=== PATIENT | female | born 1965 | race Hispanic/Latino ===

== ENCOUNTER 2023-04-08 15:06 | Outpatient (RCR) | payer OTHER, BC, SELFPAY | END 2023-04-08 23:59 | disposition home or self-care (01) | LOC: RPT 15:06 | PROVIDERS: ATTENDING PHYSICIAN Physician Assistant Medical | DX: M54.2 Cervicalgia (principal); M54.9 Dorsalgia, unspecified; R07.9 Chest pain, unspecified; V89.2XXD Person injured in unspecified motor-vehicle accident, traffic, subsequent encounter | CPT/HCPCS: 97010; 97110; 97112; 97162 ==

== ENCOUNTER 2023-04-25 14:26 | Outpatient (RCR) | payer OTHER, BC, SELFPAY | END 2023-04-25 23:59 | disposition home or self-care (01) | LOC: RPT 14:26 | PROVIDERS: ATTENDING PHYSICIAN Physician Assistant Medical | DX: M54.2 Cervicalgia (principal); M54.9 Dorsalgia, unspecified; R07.9 Chest pain, unspecified; Z73.6 Limitation of activities due to disability; V89.2XXD Person injured in unspecified motor-vehicle accident, traffic, subsequent encounter | CPT/HCPCS: 97110 ==

== ENCOUNTER → 2023-05-17 06:22 | Outpatient (REF) | payer OTHER, BC, SELFPAY | LOC: MRI 06:22 | PROVIDERS: ATTENDING PHYSICIAN Physician Assistant Medical | DX: M54.2 Cervicalgia (principal); V89.2XXD Person injured in unspecified motor-vehicle accident, traffic, subsequent encounter | CPT/HCPCS: 72141 ==

== ENCOUNTER → 2023-06-04 14:39 | Outpatient (REF) | payer BC, SELFPAY | LOC: WDC 14:39 | PROVIDERS: ATTENDING PHYSICIAN Physician Assistant Medical | DX: Z12.31 Encounter for screening mammogram for malignant neoplasm of breast (principal) | CPT/HCPCS: 77063; 77067 ==

== ENCOUNTER → 2023-12-01 15:15 | Outpatient (REF) | payer BC, SELFPAY ==
[2023-12-01 16:02] LABS: % Basophils 0.8 % (0-2); % Eosinophils 2.1 % (0-6); % Immature Granulocytes 0.3 % (0-0.5); % Lymphocytes 27.5 % (20.5-51.1); % Monocytes 8.1 % (1.7-9.3); % Neutrophils 61.2 % (42.2-75.2); Absolute Basophils 0.1 10^3/uL (0-0.2); Absolute Eosinophils 0.2 10^3/uL (0-0.7); Absolute Lymphocytes 2.1 10^3/uL (1.2-3.4); Absolute Monocytes 0.6 10^3/uL (0.1-0.6); Absolute Neutrophils 4.6 10^3/uL (1.4-6.5); Hemoglobin 12.2 g/dL (12.0-16.0); Mean Corp Hgb Conc. 33.9 g/dL (33.0-37.0); Mean Corpuscular Hgb 30.2 pg (27.0-31.0); Mean Corpuscular Volume 89.1 fL (81.0-99.0); Mean Platelet Volume 9.1 fL (7.4-10.4); Nucleated Red Blood Cells % 0 %; Platelet Count 324 10^3/uL (130-400); Red Blood Cell Count 4.04 10^6/uL (4.20-5.40); Red Cell Dist. Width 13.6 % (11.5-14.5); White Blood Cell Count 7.6 10^3/uL (4.8-10.8)
[2023-12-01 16:15] LABS: ALT (SGPT) 22 U/L (0-35); AST (SGOT) 30 U/L (14-36); Albumin 4.7 g/dl (3.5-5.0); Alkaline Phosphatase 88 U/L (38-126); Blood Urea Nitrogen 17 mg/dl (7-17); Calcium 9.6 mg/dl (8.4-10.2); Carbon Dioxide 28 mmol/L (22-30); Chloride 102 mmol/L (98-107); Glucose 85 mg/dl (70-99); HDL Cholesterol 100 mg/dl; LDL Cholesterol, Calculated 132 mg/dl; Potassium 4.5 mmol/L (3.5-5.1); Sodium 142 mmol/L (135-145); Total Bilirubin 0.5 mg/dl (0.2-1.3); Total Cholesterol 243 mg/dl (50-199); Total Protein 7.5 g/dl (6.3-8.2); Triglyceride 56 mg/dl (10-149); Very Low Density Lipoprotein 11 mg/dl (0-30); eGFR > 60.00
[2023-12-01 16:17] LABS: Erythrocyte Sed Rate 18 mm/hour (0-20)
[2023-12-01 16:19] LABS: C-Reactive Protein < 5.00 mg/L (0.0-10.00)
[2023-12-02 10:09] LABS: Glycohemoglobin (HgbA1c) 5.4 % (4.0-5.6)
== END ==
LOC: REG 15:15
PROVIDERS: ATTENDING PHYSICIAN Internal Medicine Rheumatology; FAMILY PHYSICIAN Student in an Organized Health Care Education/Training Program
DX: Z00.00 Encounter for general adult medical examination without abnormal findings (principal); M25.50 Pain in unspecified joint
CPT/HCPCS: 36415; 80053; 80061; 83036; 84443; 85025; 85652; 86140

== ENCOUNTER 2023-12-05 15:03 | Outpatient (RCR) | payer OTHER, BC, SELFPAY | END 2023-12-05 23:59 | disposition home or self-care (01) | LOC: RPT 15:03 | PROVIDERS: ATTENDING PHYSICIAN Physician Assistant Medical | DX: M54.12 Radiculopathy, cervical region (principal); Z73.6 Limitation of activities due to disability | CPT/HCPCS: 97010; 97110; 97112; 97140; 97162; 97530 ==

== ENCOUNTER 2023-12-24 15:01 | Outpatient (RCR) | payer OTHER, BC, SELFPAY | END 2023-12-24 23:59 | disposition home or self-care (01) | LOC: RPT 15:01 | PROVIDERS: ATTENDING PHYSICIAN Physician Assistant Medical | DX: M54.12 Radiculopathy, cervical region (principal); Z73.6 Limitation of activities due to disability | CPT/HCPCS: 97010; 97110; 97112; 97140 ==

== ENCOUNTER → 2024-06-04 16:15 | Outpatient (REF) | payer BC, SELFPAY | LOC: WDC 16:15 | PROVIDERS: ATTENDING PHYSICIAN Physician Assistant Medical | DX: Z12.31 Encounter for screening mammogram for malignant neoplasm of breast (principal) | CPT/HCPCS: 77063; 77067 ==

== ENCOUNTER → 2024-07-12 16:43 | Outpatient (REF) | payer BC, SELFPAY | LOC: RAD 16:43 | PROVIDERS: ATTENDING PHYSICIAN Specialist; FAMILY PHYSICIAN Physician Assistant Medical | DX: R10.9 Unspecified abdominal pain (principal) | CPT/HCPCS: 76770 ==

== ENCOUNTER → 2024-09-28 06:29 | Outpatient (REF) | payer BC, SELFPAY ==
[2024-09-28 07:26] LABS: Hematocrit 36.3 % (37.0-47.0); Hemoglobin 12.1 g/dL (12.0-16.0); Mean Corp Hgb Conc. 33.3 g/dL (33.0-37.0); Mean Corpuscular Volume 91.2 fL (81.0-99.0); Nucleated Red Blood Cells % 0 %; Platelet Count 335 10^3/uL (130-400); Red Cell Dist. Width 13.7 % (11.5-14.5)
[2024-09-28 07:49] LABS: ALT (SGPT) 26 U/L (0-35); AST (SGOT) 25 U/L (14-36); Albumin 4.4 g/dl (3.5-5.0); Alkaline Phosphatase 74 U/L (38-126); Blood Urea Nitrogen 21 mg/dl (7-17); Calcium 9.7 mg/dl (8.4-10.2); Carbon Dioxide 30 mmol/L (22-30); Chloride 105 mmol/L (98-107); Glucose 96 mg/dl (70-99); Potassium 5.0 mmol/L (3.5-5.1); Sodium 139 mmol/L (135-145); Total Protein 7.3 g/dl (6.3-8.2); eGFR > 60.00
[2024-09-28 08:05] LABS: Vitamin D, 25-OH*** 34.9 ng/mL (30-80)
== END ==
LOC: REG 06:29
PROVIDERS: ATTENDING PHYSICIAN Internal Medicine Rheumatology; FAMILY PHYSICIAN Physician Assistant Medical
DX: E55.9 Vitamin D deficiency, unspecified (principal); M15.9 Polyosteoarthritis, unspecified
CPT/HCPCS: 36415; 80053; 82306; 85025

== ENCOUNTER → 2024-12-02 10:30 | Outpatient (REF) | payer BC, SELFPAY ==
[2024-12-02 11:25] LABS: Hematocrit 34.2 % (37.0-47.0); Hemoglobin 11.4 g/dL (12.0-16.0); Mean Corp Hgb Conc. 33.3 g/dL (33.0-37.0); Mean Corpuscular Volume 89.5 fL (81.0-99.0); Nucleated Red Blood Cells % 0 %; Platelet Count 313 10^3/uL (130-400); Red Cell Dist. Width 13.9 % (11.5-14.5)
[2024-12-02 11:54] LABS: ALT (SGPT) 23 U/L (0-35); AST (SGOT) 28 U/L (14-36); Albumin 4.4 g/dl (3.5-5.0); Alkaline Phosphatase 78 U/L (38-126); Blood Urea Nitrogen 22 mg/dl (7-17); Calcium 9.5 mg/dl (8.4-10.2); Carbon Dioxide 29 mmol/L (22-30); Chloride 105 mmol/L (98-107); Glucose 78 mg/dl (70-99); Potassium 4.5 mmol/L (3.5-5.1); Sodium 139 mmol/L (135-145); Total Protein 7.5 g/dl (6.3-8.2); Very Low Density Lipoprotein 10 mg/dl (0-30); eGFR > 60.00
[2024-12-02 12:04] LABS: HDL Cholesterol 111 mg/dl; LDL Cholesterol, Calculated 107 mg/dl
== END ==
LOC: REG 10:30
PROVIDERS: ATTENDING PHYSICIAN Physician Assistant Medical
DX: E78.00 Pure hypercholesterolemia, unspecified (principal); K58.9 Irritable bowel syndrome, unspecified; Z00.00 Encounter for general adult medical examination without abnormal findings
CPT/HCPCS: 36415; 80053; 80061; 84443; 85025

== ENCOUNTER → 2024-12-09 14:30 | Outpatient (REF) | payer BC, SELFPAY ==
[2024-12-09 16:13] LABS: Iron 80 ug/dl (37-170)
[2024-12-09 16:22] LABS: Total Iron Binding Capacity 359 ug/dl (265-497)
[2024-12-09 16:49] LABS: Ferritin 31.6 ng/ml (11.1-264.0)
== END ==
LOC: REG 14:30
PROVIDERS: ATTENDING PHYSICIAN Physician Assistant Medical
DX: D64.9 Anemia, unspecified (principal)
CPT/HCPCS: 36415; 82728; 83540; 83550